=== PATIENT | female | born 1995 | race African-American/Black ===

== ENCOUNTER 2018-03-31 00:17 | Emergency (ER) | payer MEDICAID ==
[~2018-03-31] VITALS: Ht 177.8 cm; Wt 113.6 kg
[2018-03-31] MEDS ORDERED: HYDROCODONE/ACETAMINOPHEN 5-325 MG TABLET PO ONE (01:30)
[2018-03-31] MEDS ORDERED: ONDANSETRON HCL 4 MG TABLET PO ONE (01:30)
[2018-03-31 03:27] VITALS: BP 145/84
== END 2018-03-31 03:28 | disposition home or self-care (01) ==
LOC: EMS 00:18
DX: S06.0X9A Concussion with loss of consciousness of unspecified duration, initial encounter (principal); S60.222A Contusion of left hand, initial encounter; J45.909 Unspecified asthma, uncomplicated; I10 Essential (primary) hypertension; F17.210 Nicotine dependence, cigarettes, uncomplicated; F12.90 Cannabis use, unspecified, uncomplicated; Y04.2XXA Assault by strike against or bumped into by another person, initial encounter; Y93.89 Activity, other specified; Y92.89 Other specified places as the place of occurrence of the external cause; Y99.8 Other external cause status
CPT/HCPCS: 70450; 70486; 72125; 73130; 81025; 99284; Q0162